=== PATIENT | female | born 1960 | race Two or more races ===

== ENCOUNTER 2021-09-24 11:36 | Emergency (ER) | payer MEDICAID ==
[~2021-09-24] VITALS: Ht 152.4 cm; Wt 57.2 kg
--- NOTE | 2021-09-24 11:45 | NUR ---
BIB DAUGHTER C/O LOWER ABD PAIN x 2DAYS, DYSURIA&CONSTIPATION ALSO C/O "PULSATING HEADACHE" & BODY ACHES x 3DAYS. THE PATIENT RATES PAIN 6/10. ABDOMEN SOFT AND NON-DISTENDED. WILL CONTINUE TO MONITOR THE PATIENT.
--- NOTE | 2021-09-24 12:00 | NUR ---
URINE SAMPLE COLLECTED AND SENT TO LAB
[2021-09-24 12:20] LABS: BASOPHILS # (AUTO) 0.1 K/uL (0.0-0.2); BASOPHILS % (AUTO) 0.7 % (0.0-2.0); EOSINOPHILS % (AUTO) 0.6 % (0.0-6.0); HEMATOCRIT 39 % (33-45); HEMOGLOBIN 13.2 g/dL (11.5-14.8); LYMPHOCYTES # (AUTO) 1.7 K/uL (0.8-4.8); LYMPHOCYTES % (AUTO) 14.6 % (20.0-44.0); MEAN CORPUSCULAR HGB CONC 33 g/dl (31.0-36.0); MEAN CORPUSCULAR VOLUME 90 fL (82-100); NEUTROPHILS # (AUTO) 8.5 K/uL (1.8-8.9); NEUTROPHILS % (AUTO) 75.1 % (43.0-81.0); PLATELET COUNT (AUTO) 209 K/uL (150-450); RED BLOOD CELL COUNT(AUTO) 4.39 MIL/uL (4.0-5.2); WHITE BLOOD COUNT (AUTO) 11.3 K/uL (4.3-11.0)
[2021-09-24 12:22] LABS: BILIRUBIN,URINE NEGATIVE (NEGATIVE); COLOR,URINE YELLOW (YELLOW); LEUKOCYTE ESTERASE ,URINE NEGATIVE (NEGATIVE); NITRITE, URINE NEGATIVE (NEGATIVE); PROTEIN,URINE NEGATIVE (NEGATIVE); UGLUCOSE NEGATIVE (NEGATIVE); UROBILINOGEN,URINE 0.2 EU/dL (0.2)
[2021-09-24] MEDS ORDERED: IV NS 0.9% 500 ML BAG IV ONE (12:30)
[2021-09-24 12:39] LABS: BACTERIA,URINE Few /HPF (None Seen); RBC,URINE 0-2 /HPF (0-2); SQUAMOUS EPITHELIAL CELL,UR Few /HPF (None Seen); WBC,URINE 0-2 /HPF (0-3)
[2021-09-24 13:11] LABS: ALBUMIN 3.5 g/dL (3.4-5.0); BILIRUBIN,DIRECT 0.2 mg/dL (0.0-0.2); BILIRUBIN,TOTAL 0.7 mg/dL (0.2-1.0); CALCIUM, SERUM 9.2 mg/dL (8.5-10.1); CREATININE 0.8 mg/dL (0.6-1.3); POTASSIUM 4.1 mmol/L (3.5-5.1); TOTAL PROTEIN, SERUM 7.7 g/dL (6.4-8.2)
--- NOTE | 2021-09-24 13:50 | NUR ---
US TECH AT THE BEDSIDE
[2021-09-24] MEDS ORDERED: POLY17PO4 PO (14:13)
[2021-09-24] MEDS ORDERED: DOCU-141 PO (14:13)
[2021-09-24 14:23] VITALS: BP 126/75
--- NOTE | 2021-09-24 14:23 | NUR ---
IV removed. Catheter intact and site benign. Pressure and 4x4 applied to site. No bleeding noted.Patient discharged to home in stable condition. Written and verbal after care instructions given. Patient verbalizes understanding of instruction.
[2021-09-24 16:08] LABS: ALCOHOL, BLOOD < 3 mg/dL (0-0)
[2021-09-24 16:09] LABS: ACETAMINOPHEN < 0 ug/ml (10-30)
== END 2021-09-24 14:24 | disposition home or self-care (01) ==
LOC: ER 11:45
DX: K59.00 Constipation, unspecified (principal); Z90.49 Acquired absence of other specified parts of digestive tract; Z90.89 Acquired absence of other organs; Z79.899 Other long term (current) drug therapy
CPT/HCPCS: 36415; 71045; 76856; 80048; 80076; 80143; 80307; 80320; 81001; 83690; 85025; 87086; 99285; J7040; G0480